=== PATIENT | female | born 1980 | race Caucasian/White ===

== ENCOUNTER 2021-05-17 07:48 | Outpatient (CLI) | payer OTHER, SELFPAY ==
--- NOTE | ~2021-05-17 | XR_ITS ---
EXAMINATION: XR hand RT min 3V DATE: 05/17/2021 09:05 INDICATION: Pain at the palm of the right hand and base of the thumb TECHNIQUE: Posteroanterior, oblique and lateral views of the right hand were obtained. COMPARISON: None. FINDINGS: 3 mm ulnar minus variance. Otherwise normal alignment at the right hand and wrist. No fracture. Joint spaces are normal. Bone mineralization appears normal with no suggestion of osteonecrosis of the wili ate. No cortical erosions or periosteal reaction. Soft tissues are unremarkable. IMPRESSION: 1. 3 mm ulnar minus variance. Otherwise normal study. Reviewed, dictated and finalized at location A.
--- NOTE | ~2021-05-17 | US_ITS ---
EXAMINATION: US right upper quadrant EXAM DATE: 05/17/2021 08:37 INDICATION: Stomach cramps. TECHNIQUE: Multiple grayscale and Doppler images of the abdomen right upper quadrant were obtained (b y a technologist who performed the scan) and subsequently reviewed. There is no prior study for gayla castellano. FINDINGS: The pancreatic head and body are normal in appearance. The pancreatic tail is not visualized. The l iver has normal echogenicity and contour. There are no focal liver lesions identified. There is no evidence of intrahepatic biliary duct dilation. Portal venous flow was seen in the hepatopedal, nor mal direction and has normal Doppler waveform. No right-sided hydronephrosis. Common bile duct measures 3 mm, which is normal. The gallbladder wall is normal in thickness, with ex pected amount of distention. No sonographic evidence of pericholecystic fluid. There is no cholelit hiases. Technologist performing exam reports patient did not demonstrate sonographic Muniz's sign. Please note that this sign is less reliable in patients who have received pain medication. IMPRESSION: 1. Unremarkable abdominal ultrasound exam. Reviewed, dictated and finalized at location A.
--- NOTE | ~2021-05-17 | XR_ITS ---
EXAMINATION: XR UGIAC wo kub EXAM DATE: 05/17/2021 09:08 INDICATION: GERD, Stomach cramps, coughing after meals. TECHNIQUE: Standard single and double contrast barium upper GI examination was performed by radiolog iskeshav Galdamez M.D. Pulsed dose reduction fluoroscopy was used with fluoroscopic time of 0.8 minut es. The DAP for this procedure was 0.55 Gycm2. A total of 139 images obtained for the exam. There is no prior study for comparison. FINDINGS: There is a small outpouching in the cervical esophagus posteriorly identified when the cerv ical esophagus is collapsed, after the bolus of contrast has passed, likely a Zenker's diverticulum. This outpouching is not demonstrated when the cervical esophagus is distended with contrast. There is no esophageal stricture or mass identified. Small gastroesophageal hiatal hernia. The stomach has a normal appearance without evidence of mass lesion, ulceration or filling defect. T here is normal rugal fold pattern. The duodenum and duodenal sweep are normal in appearance. IMPRESSION: 1. Small cervical posterior outpouching probably Zenker's diverticulum. 2. Small gastroesophageal hiatal hernia. Reviewed, dictated and finalized at location A.
== END 2021-05-17 07:49 | disposition home or self-care (01) ==
PROVIDERS: PCP Physician Assistant; Visit Provider Physician Assistant
DX: K21.9 Gastro-esophageal reflux disease without esophagitis (principal); M79.641 Pain in right hand; R10.9 Unspecified abdominal pain; K44.9 Diaphragmatic hernia without obstruction or gangrene
CPT/HCPCS: 73130; 74246; 76705

== ENCOUNTER 2021-06-24 01:05 | Day surgery (SDC) | payer OTHER, SELFPAY ==
[2021-06-09 13:29] VITALS: BMI 20.6
[2021-06-24 09:38] VITALS: BP 120/72; PULSE 73; RESP 18; TEMP 36.5; O2SAT 100
[2021-06-24] MEDS: LACTATED RINGERS 1,000 ML 150 ML IV CONT (09:58)
--- NOTE | 2021-06-24 10:02 | P.PNAN_ITS ---
Anes - Initial Pre Proc Eval Procedure: Operation Date: 06/24/21 10:45 Proposed Procedures p Esophagogastroduodenoscopy - Lawson Wiggins MD Date/Time: 06/24/21 10:02 Surgeon: Lawson Wiggins MD Pre Op Diagnosis: diverticulum of the esophagus Patient Data Age: 40 Gender: F Height: 1.63 m Weight: 55.2 kg Last Vital Signs Temp 36.5 C 06/24/21 09:38 Pulse 73 06/24/21 09:38 Resp 18 06/24/21 09:38 BP 120/72 06/24/21 09:38 Pulse Ox 100 06/24/21 09:38 Allergies Allergy/AdvReac Type Severity Reaction Status Date / Time No Known Allergies Allergy Verified 06/24/21 09:37 Home Medications Medication Instructions Recorded Confirmed Type norgestimate-ethinyl estradiol 1 tablet PO DAILY tablet 04/19/21 06/09/21 History 0.18 mg/0.215mg/0.25mg-35 mcg(28)tablet Patient hx anesthesia problems: none Family hx anesthesia problems: none Results Review: All pre-operative results and documents have been reviewed as part of the pre-operative evaluation. [facility] Social History Social History Smoking status: Never smoker Alcohol intake: former Substance use: never Substance use type: does not use Living arrangements: with family Spiritual care concerns: No Anes - Eval Final PreProcedure Day of Procedure 06/24/21 10:02 Patient weight: normal Heart: regular rate and rhythm Lungs: clear to auscultation Airway: Mallampati scale class II Neurological: alert and oriented Last oral intake: >/= 8 hours ASA classification: I Emergent: no Anesthetic plan: proceed Anesthesia type and monitoring: general GIVS and standard monitoring Results Review: All pre-operative results and documents have been reviewed as part of the pre-operative evaluation. Informed Consent: The patient's anesthetic plan and its attendant risks and benefits were discussed with the patient/family/POA. Questions were solicited and answers provided to the satisfaction of the patient/family/POA.
--- NOTE | 2021-06-24 10:28 | PM.HPGS ---
History of Present Illness History of Present Illness Consent: Risks, benefits, and alternatives have been discussed and questions answered. Patient agrees to proceed with procedure. Chief complaint: diverticulum of the esophagus Narrative: Vin Ma is a 40 year old female a long history of acid reflux. She has not been having as much heartburn lately but she is troubled by a cough which is persistent. For several years she would notice that for some time after meal, almost any meal she will begin coughing. She does not bring anything up. This does not occur every day. She does not have this cough when she is lying down she has not noticed any particular foods beverages or other items that seem to bring it on. Recent barium swallow revealed a very small Zenker's diverticulum, and a small hiatal hernia. She has been tested for food allergies. She states that she know she has had a test for celiac disease. She gets cramping in the lower abdomen and occasionally diarrhea. Review of Systems Review of Systems: All systems reviewed & are unremarkable except as noted in HPI and below PMFSH Social History Social History Smoking status: Never smoker Alcohol intake: former Substance use: never Substance use type: does not use Living arrangements: with family Spiritual care concerns: No Meds Home Medications and Allergies Home Medications Medication Instructions Recorded Confirmed Type norgestimate-ethinyl estradiol 1 tablet PO DAILY tablet 04/19/21 06/09/21 History 0.18 mg/0.215mg/0.25mg-35 mcg(28)tablet Allergies Allergy/AdvReac Type Severity Reaction Status Date / Time No Known Allergies Allergy Verified 06/24/21 09:37 Vital Signs Vital Signs - 24 hr 06/24/21 09:38 Temperature 36.5 C Pulse Rate 73 Respiratory Rate 18 Blood Pressure 120/72 Pulse Oximetry 100 Exam Const: General: alert Orientation/consciousness: patient oriented x3 Resp: Auscultation: clear to auscultation bilaterally Cardio: Rhythm: regular rhythm GI: GI Palp: Yes Soft to palpation and No Tenderness to palpation present (GI) Neuro: General: patient oriented x3 Assessment and Plan Assessment and plan (1) GERD (gastroesophageal reflux disease): Code(s): K21.9 - Gastro-esophageal reflux disease without esophagitis Status: Acute Assessment and Plan: EGD with possible biopsy or dilatation or cautery.
[2021-06-24 10:48] VITALS: BP 117/73; PULSE 83; RESP 21; O2SAT 100
[2021-06-24 10:58] VITALS: BP 121/75; PULSE 70; RESP 25; O2SAT 100
[2021-06-24 11:08] VITALS: BP 130/82; PULSE 63; RESP 16; O2SAT 100
== END 2021-06-24 11:18 | disposition home or self-care (01) ==
PROVIDERS: PCP Physician Assistant; Visit Provider Internal Medicine Gastroenterology
PROC: 0DJ08ZZ Inspection of Upper Intestinal Tract, Via Natural or Artificial Opening Endoscopic (ICD-10-PCS; CPT 43235; principal; 2021-06-24 10:45)
DX: K21.9 Gastro-esophageal reflux disease without esophagitis (principal); K22.5 Diverticulum of esophagus, acquired; K44.9 Diaphragmatic hernia without obstruction or gangrene
CPT/HCPCS: 43239; 87081; J2704; J7120

== ENCOUNTER → 2022-07-04 15:50 | Outpatient (CLI) | payer OTHER, SELFPAY ==
--- NOTE | ~2022-07-04 | MR_ITS ---
EXAMINATION: MR brain/brain stem wo/w con DATE: 07/04/2022 16:30 INDICATION: Headache TECHNIQUE: Magnetic resonance imaging (MRI) of the brain and brainstem was performed without and with 10 mL Multihance intravenous contrast. Sequences included sagittal and axial T1-weighted SE, axial d iffusion-weighted FS SE, axial T2*-weighted GRE, axial 3D SWAN, axial T2-weighted FLAIR, and axial T2 -weighted FSE. Postcontrast axial and coronal T1-weighted SE was obtained. Apparent diffusion coeffic ient (ADC) maps were created. COMPARISON: None. FINDINGS: There are no areas of restricted diffusion to suggest acute infarction. No intracranial hemorrhage or abnormal intracranial mass lesion. There are no intraparenchymal signal abnormalities seen on the ot her pulse sequences. The ventricles are symmetric and normal in size. There are no abnormal extra-axi al fluid collections. Flow voids are seen in the cerebral arteries on the T2-weighted sequences consi stent with their expected patency. Visualized orbits and soft tissues are unremarkable. There are no areas of abnormal enhancement on the post contrast images. IMPRESSION: 1. Normal brain MR. No acute intracranial process. Reviewed, dictated and finalized at location B. WORKER
== END ==
PROVIDERS: PCP Physician Assistant; Visit Provider Physician Assistant
DX: R51.9 Headache, unspecified (principal)
CPT/HCPCS: 70553; A9577

== ENCOUNTER → 2022-11-16 13:27 | Outpatient (CLI) | payer OTHER, SELFPAY ==
--- NOTE | ~2022-11-16 | MM_ITS ---
EXAMINATION: MM screening jeremiah BI w devin HISTORY: Screening mammogram TECHNIQUE: Craniocaudal and mediolateral oblique 3-D tomosynthesis images were obtained and synthetic 2-D images were generated. CAD analysis was submitted and interpreted. COMPARISON: None, baseline BREAST PARENCHYMAL COMPOSITION: The breasts are heterogeneously dense, which may obscure small masses . FINDINGS: RIGHT BREAST: No suspicious mass, calcification, or architectural distortion are identified to sugges t malignancy. LEFT BREAST: There is a focal asymmetry in the anterior third lower inner breast. IMPRESSION: 1. Left breast focal asymmetry. 2. Additional mammographic views and possible breast ultrasound are recommended to evaluate the left breast focal asymmetry and establish a baseline given that this is the first mammographic examination . BI-RADS Category 0: Incomplete: Needs additional imaging evaluation. Reviewed, dictated and finalized at location A. IMPRESSION: 1. Left breast focal asymmetry. 2. Additional mammographic views and possible breast ultrasound are recommended to evaluate the left breast focal asymmetry and establish a baseline given suri t this is the first mammographic examination. BI-RADS Category 0: Incomplete: Needs additional imaging evaluation.
== END ==
PROVIDERS: PCP Physician Assistant; Visit Provider Student in an Organized Health Care Education/Training Program
DX: Z12.31 Encounter for screening mammogram for malignant neoplasm of breast (principal); R92.8 Other abnormal and inconclusive findings on diagnostic imaging of breast
CPT/HCPCS: 77063; 77067

== ENCOUNTER 2022-11-21 08:41 | Outpatient (CLI) | payer OTHER, SELFPAY ==
--- NOTE | ~2022-11-21 | MMUS_ITS ---
EXAMINATION: MM diagnostic jeremiah LT w devin, US breast LT limited HISTORY: Left breast focal asymmetry on screening mammogram TECHNIQUE: Additional 3-D tomosynthesis images of the left breast were performed and synthetic 2-D im ages were generated. CAD analysis was submitted and interpreted. High resolution limited left breast ultrasound was performed. COMPARISON: 11/16/2022 FINDINGS: MAMMOGRAPHIC FINDINGS: There is a persistent asymmetry in the subareolar aspect of the breast with spot compression. ULTRASOUND: There is a 6 mm x 4 mm oval, circumscribed, parallel, complex cystic and solid mass with no posterior features or internal vascularity at the 6:00 location near the nipple. IMPRESSION: 1. Probably benign asymmetry and mass of the subareolar left breast. 2. Recommend 6 month follow-up left diagnostic mammogram and ultrasound. BI-RADS category 3, probably benign findings. Reviewed, dictated and finalized at location A. IMPRESSION: 1. Probably benign asymmetry and mass of the subareolar left breast. 2. Recommend 6 month follow-up left diagnostic mammogram and ultrasound. BI-RADS category 3, probably benign findings.
== END 2022-11-21 08:42 | disposition home or self-care (01) ==
LOC: CHSIMG 08:42
PROVIDERS: PCP Physician Assistant; Visit Provider Student in an Organized Health Care Education/Training Program
DX: N64.89 Other specified disorders of breast (principal); R92.8 Other abnormal and inconclusive findings on diagnostic imaging of breast
CPT/HCPCS: 76642; 77061; 77065; G0279

== ENCOUNTER 2023-02-14 16:30 | Emergency (ER) | payer OTHER, SELFPAY ==
[2023-02-14 16:42] VITALS: BP 126/69; PULSE 81; RESP 16; TEMP 36.6; O2SAT 100
--- NOTE | 2023-02-14 16:50 | ED.FEMALEGU ---
HPI - Female Genitourinary General Chief complaint: Urogenital-Female Stated complaint: uti symptoms Time Seen by Provider: 02/14/23 16:45 Source: patient Mode of arrival: ambulatory Limitations: no limitations History of Present Illness HPI Narrative: Manjinder is a 42-year-old female patient presenting to the clinic today with complaints of a possible UTI. She reports her symptoms started yesterday with burning, frequency, urgency, and some blood in her urine. She denies any flank pain or abdominal pain but does have pain over her bladder. No fever or chills. Denies any concern for any sexually transmitted infections. Related Data Home Medications Medication Instructions Recorded Confirmed sumatriptan succinate 50 mg tablet 50 mg PO PRN PRN Migraine Headache 01/27/23 02/14/23 Allergies Allergy/AdvReac Type Severity Reaction Status Date / Time cat dander AdvReac Mild Hives Uncoded 02/14/23 16:39 Review of Systems Review of Systems: Pertinent positives per HPI. Patient denies any fever, chills, rash, headache, visual changes, dizziness, cough, runny nose, sore throat, shortness of breath, chest pain, palpitations, nausea, vomiting, diarrhea, constipation, abdominal pain, or any urinary issues. [facility] Past Medical History Medical History Bronchitis Screening for breast cancer Surgical History Surgical History History of gynecological procedure (10/17/22) cervical polyp removed / Benign Family History Family History Father COPD (chronic obstructive pulmonary disease) Social History Social History Smoking status: Never smoker Alcohol intake: never Substance use: never Substance use type: does not use Living arrangements: other Additional living arrangements comments: spouse Gender identity (if verbalized by the patient): Female Sexual Orientation (if Verbalized by the Patient): Straight or Heterosexual Spiritual care concerns: No Comments At the time of my signature, I reviewed and agree with the nursing past medical, surgical, social, and family history. There is no relevant family history pertinent to the patient complaint. Exam Narrative: General: Well-developed, well nourished, in no apparent distress. Head: Normocephalic, atraumatic. Cardio: Regular rate and rhythm, s1 and s2 normal, no murmur appreciated. Resp: Clear to auscultation bilaterally, no rhonchi, rales, wheezing or rubs. Abdomen: Soft, pliable, bowel sounds present in all quadrants, non-tender to palpation, no organomegly, no CVAT tenderness. Course Course Emergency Course: Portions of this record may have been created with voice recognition software. Level of Care: Express Care Visit Vital Signs Vital signs: Vital Signs Temperature 36.6 C 02/14/23 16:42 Pulse Rate 81 02/14/23 16:42 Respiratory Rate 16 02/14/23 16:42 Blood Pressure 126/69 02/14/23 16:42 Pulse Oximetry 100 02/14/23 16:42 Oxygen Delivery Room Air 02/14/23 16:42 Temperature 36.6 C 02/14/23 16:42 Pulse Rate 81 02/14/23 16:42 Respiratory Rate 16 02/14/23 16:42 Blood Pressure 126/69 02/14/23 16:42 Pulse Oximetry 100 02/14/23 16:42 Oxygen Delivery Room Air 02/14/23 16:42 Vital signs reviewed MDM - Female Genitourinary MDM Narrative Medical decision making narrative: At the time of visit patient is resting comfortably on the exam table. UA shows leukocytes, blood, and protein. Will send for urine culture. Patient denies of any fever, chills, flank pain, or abdominal pain. Will place patient on Macrobid and Pyridium. Supportive measures were discussed with the patient she voiced understanding discharge instructions agrees to treatment plan. Luzma
== END 2023-02-14 16:54 | disposition home or self-care (01) ==
PROVIDERS: Emergency Provider Nurse Practitioner Family; PCP Physician Assistant
DX: N30.01 Acute cystitis with hematuria (principal)
CPT/HCPCS: 81003; 87086; 99213; G0463

== ENCOUNTER → 2023-05-26 07:41 | Outpatient (CLI) | payer OTHER, SELFPAY ==
--- NOTE | ~2023-05-26 | MMUS_ITS ---
EXAMINATION: MM diagnostic jeremiah LT w devin, US breast LT limited HISTORY: Follow-up left breast mass TECHNIQUE: Additional 3-D tomosynthesis images of the left breast were performed and synthetic 2-D im ages were generated. CAD analysis was submitted and interpreted. High resolution Limited left breast ultrasound was performed. COMPARISON: Comparison to multiple prior studies sequentially, with oldest reviewed study dated 09/2022. BREAST PARENCHYMAL COMPOSITION: The breasts are heterogeneously dense, which may obscure small masses FINDINGS: MAMMOGRAPHIC FINDINGS: The left breast is stable. No new masses, calcifications or architectural distortion. Asymmetry in th e subareolar location of the left breast is unchanged. ULTRASOUND: Limited left breast ultrasound: At 6:00, 1 cm from the nipple, there is an oval hypoechoic mass measu ring 5 mm, parallel orientation, no internal vascularity and no posterior features. Also at this loca tion there is a second small 3 mm complicated cyst. IMPRESSION: 1. Probable benign left breast masses by ultrasound. 2. 6 month follow-up bilateral mammogram and Limited left breast ultrasound recommended. BI-RADS category 3, probably benign findings. Reviewed, dictated and finalized at location A. [employer] IMPRESSION: 1. Probable benign left breast masses by ultrasound. 2. 6 month follow-up bilateral mammogram and Limited left breast ultrasound rec ommended. BI-RADS category 3, probably benign findings.
== END ==
PROVIDERS: PCP Physician Assistant; Visit Provider Student in an Organized Health Care Education/Training Program
DX: R92.8 Other abnormal and inconclusive findings on diagnostic imaging of breast (principal)
CPT/HCPCS: 76642; 77061; 77065; G0279

== ENCOUNTER 2023-09-04 00:26 | Day surgery (SDC) | payer OTHER, SELFPAY ==
[2023-08-16 15:14] VITALS: BMI 21.9
--- NOTE | 2023-09-01 11:22 | SUR.PREOP ---
Patient called regarding upcoming procedure. Voicemail left regarding appointment times.
--- NOTE | 2023-09-01 14:04 | PM.HPGS ---
History of Present Illness History of Present Illness Consent: Risks, benefits, and alternatives have been discussed and questions answered. Patient agrees to proceed with procedure. Chief complaint: change in bowel habits,Abdom.pain, Narrative: Vin Ma is a 42 year old female referred for investigation of recent diarrhea and some blood in her stools. She also has been having lower abdominal pains. Every couple weeks she will have loose stools and then has blood-tinged mucus with it. She has not had weight loss. Review of Systems Review of Systems: All systems reviewed & are unremarkable except as noted in HPI and below PMFSH Past Medical History Medical History Abdominal cramping Altered bowel habits Bright red blood per rectum Bronchitis Left breast mass Nonerosive esophageal reflux disease Screening for breast cancer Surgical History Surgical History History of gynecological procedure (10/17/22) cervical polyp removed / Benign Family History Family History Father COPD (chronic obstructive pulmonary disease) Social History Social History Smoking status: Never smoker Alcohol intake: never Substance use: never Substance use type: does not use Lack of Transportation: No Lack of Food: Never True Current Housing: I Have Housing Concerned About Future Housing: No Difficulty Paying Gas/Electric Bills: No Difficulty Paying for Meds: No Currently Unemployed: No Education: Bachelor's Degree Difficulty w/ Childcare or Family Care: No Living arrangements: with family Additional living arrangements comments: spouse Gender identity (if verbalized by the patient): Female Sexual Orientation (if Verbalized by the Patient): Straight or Heterosexual Spiritual care concerns: No Meds Home Medications and Allergies Home Medications Medication Instructions Recorded Confirmed Type norgestimate-ethinyl estradiol 1 tablet PO DAILY #84 tabs 09/27/22 09/04/23 Rx 0.18 mg/0.215mg/0.25mg-35 mcg(28)tablet sumatriptan succinate 50 mg tablet 50 mg PO PRN PRN Migraine Headache 01/27/23 09/04/23 History Allergies Allergy/AdvReac Type Severity Reaction Status Date / Time cat dander AdvReac Mild Hives Uncoded 09/04/23 12:38 Exam Resp: Auscultation: clear to auscultation bilaterally Cardio: Rate: regular rate Rhythm: regular rhythm GI: GI Palp: Yes Soft to palpation and No Tenderness to palpation present (GI) Assessment and Plan Assessment and plan (1) Altered bowel habits: Code(s): R19.4 - Change in bowel habit Status: Acute Assessment and Plan: Colonoscopy with possible biopsy or polypectomy or cautery or injection of substances.
[2023-09-04 12:42] VITALS: BP 105/62; PULSE 83; RESP 16; TEMP 36.7; O2SAT 98
[2023-09-04] MEDS: LACTATED RINGERS 1,000 ML 150 ML IV CONT (12:52)
--- NOTE | 2023-09-04 13:03 | P.PNAN_ITS ---
Anes - Initial Pre Proc Eval Procedure: Operation Date: 09/04/23 14:00 Proposed Procedures p Colonoscopy - Lawson Wiggins MD Date/Time: 09/04/23 13:03 Surgeon: Lawson Wiggins MD Pre Op Diagnosis: change in bowel habits,Abdom.pain, Patient Data Age: 42 Gender: F Height: 1.63 m Weight: 54.3 kg Last Vital Signs Temp 98.1 F 09/04/23 12:42 Pulse 83 09/04/23 12:42 Resp 16 09/04/23 12:42 BP 105/62 09/04/23 12:42 Pulse Ox 98 09/04/23 12:42 O2 Del Method Room Air 09/04/23 12:42 Allergies Allergy/AdvReac Type Severity Reaction Status Date / Time cat dander AdvReac Mild Hives Uncoded 09/04/23 12:38 Home Medications Medication Instructions Recorded Confirmed Type norgestimate-ethinyl estradiol 1 tablet PO DAILY #84 tabs 09/27/22 09/04/23 Rx 0.18 mg/0.215mg/0.25mg-35 mcg(28)tablet sumatriptan succinate 50 mg tablet 50 mg PO PRN PRN Migraine Headache 01/27/23 09/04/23 History Patient hx anesthesia problems: none Family hx anesthesia problems: none Results Review: All pre-operative results and documents have been reviewed as part of the pre- operative evaluation. [facility] Past Medical History Medical History Abdominal cramping Altered bowel habits Bright red blood per rectum Bronchitis Left breast mass Nonerosive esophageal reflux disease Screening for breast cancer Surgical History Surgical History History of gynecological procedure (10/17/22) cervical polyp removed / Benign Family History Family History Father COPD (chronic obstructive pulmonary disease) Social History Social History Smoking status: Never smoker Alcohol intake: never Substance use: never Substance use type: does not use Lack of Transportation: No Lack of Food: Never True Current Housing: I Have Housing Concerned About Future Housing: No Difficulty Paying Gas/Electric Bills: No Difficulty Paying for Meds: No Currently Unemployed: No Education: Bachelor's Degree Difficulty w/ Childcare or Family Care: No Living arrangements: with family Additional living arrangements comments: spouse Gender identity (if verbalized by the patient): Female Sexual Orientation (if Verbalized by the Patient): Straight or Heterosexual Spiritual care concerns: No Anes - Eval Final PreProcedure Day of Procedure 09/04/23 13:03 Patient weight: normal Heart: regular rate and rhythm Lungs: clear to auscultation Airway: Mallampati scale class II Neurological: alert and oriented Last oral intake: >/= 8 hours ASA classification: II Emergent: no Anesthetic plan: proceed Anesthesia type and monitoring: general GIVS and standard monitoring Results Review: All pre-operative results and documents have been reviewed as part of the pre- operative evaluation. Informed Consent: The patient's anesthetic plan and its attendant risks and benefits were discusse d with the patient/family/POA. Questions were solicited and answers provided to the satisfaction of the patient/family/POA.
[2023-09-04 13:49] VITALS: BP 107/51; PULSE 82; RESP 20; O2SAT 100
[2023-09-04 13:59] VITALS: BP 105/63; PULSE 81; RESP 19; O2SAT 100
[2023-09-04 14:09] VITALS: BP 118/66; PULSE 64; RESP 21; O2SAT 100
== END 2023-09-04 14:14 | disposition home or self-care (01) ==
PROVIDERS: PCP Physician Assistant; Visit Provider Internal Medicine Gastroenterology
PROC: 0DJD8ZZ Inspection of Lower Intestinal Tract, Via Natural or Artificial Opening Endoscopic (ICD-10-PCS; CPT 45378; principal; 2023-09-04 14:00)
DX: R19.4 Change in bowel habit (principal); R10.9 Unspecified abdominal pain; K57.30 Diverticulosis of large intestine without perforation or abscess without bleeding
CPT/HCPCS: 45378; J2704; J7120

== ENCOUNTER 2023-11-24 08:40 | Outpatient (CLI) | payer OTHER, SELFPAY ==
--- NOTE | ~2023-11-24 | MMUS_ITS ---
EXAMINATION: MM diagnostic jeremiah BI w devin, US breast LT limited HISTORY: Six-month follow-up for probable benign left breast masses reported at 6:00 1 cm from nipple TECHNIQUE: Bilateral full field MLO, MLO and CC and spot left MLO, MLO and CC 3-D tomosynthesis image s were performed and synthetic 2-D images were generated. CAD analysis was submitted and interpreted. High resolution targeted follow-up left breast ultrasound was performed. COMPARISON: 05/26/2023 diagnostic left mammogram and Limited left breast ultrasound examination Breast parenchymal composition: The breasts are heterogeneously dense, which may obscure small masses . FINDINGS: MAMMOGRAPHIC FINDINGS: No suspicious mass or architectural distortion, malignant calcification, skin thickening or retractio n or significant new or developing density is detected. ULTRASOUND: Benign-appearing oval 2.8 x 5 x 6 mm sonolucency without internal vascularity or posterior shadowing is noted at 7:00 3 cm from nipple. 2 x 3 x 3.6 mm oval parallel circumscribed hypoechoic lesion without internal vascularity or posterio r shadowing is noted in similar location. These likely correspond to the previous sonographic lesions reported at 6:00 on the May 26, 2023 Limited left breast ultrasound examination and appear stable. IMPRESSION: 1. Benign findings 2. Routine annual mammographic screening is recommended BI-RADS Category 2: Benign finding(s). Reviewed, dictated and finalized at location B. IMPRESSION: 1. Benign findings 2. Routine annual mammographic screening is recommended BI-RADS Category 2: Benign finding(s).
== END 2023-11-24 08:41 ==
LOC: MICIMG 08:41
PROVIDERS: PCP Physician Assistant; Visit Provider Student in an Organized Health Care Education/Training Program
DX: N63.20 Unspecified lump in the left breast, unspecified quadrant (principal); R92.8 Other abnormal and inconclusive findings on diagnostic imaging of breast
CPT/HCPCS: 76642; 77062; 77066; G0279

== ENCOUNTER 2025-02-06 13:56 | Outpatient (CLI) | payer OTHER, SELFPAY ==
--- NOTE | ~2025-02-06 | MM_ITS ---
EXAMINATION: MM screening jeremiah BI w devin HISTORY: Screening TECHNIQUE: Craniocaudal and mediolateral oblique 3-D tomosynthesis images were obtained and synthetic 2-D images were generated. CAD analysis was submitted and interpreted. COMPARISON: Comparison to multiple prior studies sequentially, with oldest reviewed study dated 2022. BREAST PARENCHYMAL COMPOSITION: The breasts are heterogeneously dense, which may obscure small masses . FINDINGS: There is no evidence of suspicious mass, calcification, or architectural distortion to sug gest malignancy in either breast. IMPRESSION: 1. No mammographic evidence of malignancy. 2. Recommend routine screening mammography in one year. BI-RADS Category 1: Negative Reviewed, dictated and finalized at location B.
== END 2025-02-06 13:57 | disposition home or self-care (01) ==
LOC: MICIMG 13:56
PROVIDERS: PCP Student in an Organized Health Care Education/Training Program; Visit Provider Student in an Organized Health Care Education/Training Program
DX: Z12.31 Encounter for screening mammogram for malignant neoplasm of breast (principal)
CPT/HCPCS: 77063; 77067